=== PATIENT | male | born 1950 | race Caucasian/White ===

== ENCOUNTER 2020-04-22 11:53 | Emergency (ER) | payer MEDICARE, OTHER ==
[~2020-04-22] VITALS: Ht 167.6 cm; Wt 64.9 kg
--- NOTE | 2020-04-22 12:22 | Emergency Room Report ---
History of Present Illness General Chief Complaint: Cough Source: Patient Present Illness HPI Disclaimer: Please note that this report is being documented using DRAGON technology. This can lead to erroneous entry secondary to incorrect interpretation by the dictating instrument. HPI: 69-year-old male history of aortic stenosis, hypertension presents for evaluation of cough. Symptoms present since January 2020. Patient has recovered from Covid is a positive antibody IgG from 04/18. He reports persistent cough mild shortness of breath. Feels warm but no objective fevers. Denies chest pain or palpitations. Denies nausea or vomiting. He feels globally fatigued and reports "fogginess" in his head. Denies headache, changes in vision. Has been taking ibuprofen PMH: Aortic stenosis, hypertension PSH: Reviewed Allergies: Reviewed Social Hx: Reviewed Allergies: Coded Allergies: No Known Allergies (Unverified , 04/22/20) Review of Systems All Other Systems: negative except mentioned in HPI Physical Exam General: Awake and alert, no acute distress HEENT: NC/AT. EOMI. Cardiovascular: Mild tachycardia. Systolic ejection murmur best heard at the right and left sternal border. Resp: Normal work of breathing. No cough, wheezing or crackles appreciated Abdomen: Abdomen is soft, nondistended. Nontender Skin: Intact. No abrasions, laceration or rash over the exposed skin MSK: Normal tone and bulk. Moving all extremities. No obvious deformity. Neuro: Awake and alert. Mentating appropriately. Procedures Critical Care Time Critical Care Time Total critical care time: Approximately 45 minutes Due to a high probability of clinically significant, life threatening deterioration, the patient required the highest level of preparedness to intervene emergently and I personally spent this critical care time directly and personally managing the patient. This critical care time included obtaining a history, examining the patient, pulse oximetry, ordering and reviewing studies, ordering treatments, evaluating response to treatment and updating management plan as needed, frequent reassessment and discussion with other providers as well as arranging for ultimate disposition. This critical to care time was performed to assess and manage the high probability of life-threatening deterioration that could result in multiorgan failure. This critical care time is separate from the separately billable procedures and treating other patients. Medical Decision Making Diagnostic Impression: Primary Impression: ACS (acute coronary syndrome) ER Course 69-year-old male presenting with fatigue, cough. COVID-19 IgG positive on 04/18 according to accompanying paperwork. Differential includes not limited to viral syndrome, post Covid syndrome, pneumonia, pneumothorax, bronchitis, arrhythmia, ACS, electrolyte abnormality, renal insufficiency among others. EKG on arrival concerning for somewhat elevated appearance of inferior lateral leads. Patient is denying chest pain. Troponin is elevated 0.5. Aspirin given and heparin bolus. Chest x-ray unremarkable. Accepted to [facility] for cardiology evaluation and intervention as needed. Stable for transfer. Laboratory Tests Test 04/22/20 12:25 White Blood Count 11.9 K/UL (4.8-10.8) H Red Blood Count 4.78 M/UL (4.70-6.10) Hemoglobin 13.7 G/DL (14.2-18.0) L Hematocrit 42.7 % (42.0-52.0) Mean Corpuscular Volume 89 FL (80-99) Mean Corpuscular Hemoglobin 28.8 PG (27.0-31.0) Mean Corpuscular Hemoglobin Concent 32.2 G/DL (32.0-36.0) Red Cell Distribution Width 12.4 % (11.6-14.8) Platelet Count 216 K/UL (150-450) Mean Platelet Volume 6.6 FL (6.5-10.1) Neutrophils (%) (Auto) 70.8 % (45.0-75.0) Lymphocytes (%) (Auto) 12.4 % (20.0-45.0) L Monocytes (%) (Auto) 15.5 % (1.0-10.0) H Eosinophils (%) (Auto) 0.7 % (0.0-3.0) Basophils (%) (Auto) 0.7 % (0.0-2.0) Sodium Level 143 MMOL/L (136-145) Potassium Level 4.2 MMOL/L (3.5-5.1) Chloride Level 107 MMOL/L (98-107) Carbon Dioxide Level 28 MMOL/L (21-32) Anion Gap 8 mmol/L (5-15) Blood Urea Nitrogen 12 mg/dL (7-18) Creatinine 0.9 MG/DL (0.55-1.30) Estimated Glomerular Filtration Rate > 60 mL/min (>60) Glucose Level 113 MG/DL (74-106) H Calcium Level 8.6 MG/DL (8.5-10.1) Total Bilirubin 0.6 MG/DL (0.2-1.0) Aspartate Amino Transferase (AST) 25 U/L (15-37) Alanine Aminotransferase (ALT) 32 U/L (12-78) Alkaline Phosphatase 76 U/L (46-116) Troponin I 0.531 ng/mL (0.000-0.056) Pro-B-Type Natriuretic Peptide 420 pg/mL (0-125) H Total Protein 7.0 G/DL (6.4-8.2) Albumin 3.5 G/DL (3.4-5.0) Globulin 3.5 g/dL Albumin/Globulin Ratio 1.0 (1.0-2.7) EKG Diagnostic Results Troponin ordered: Yes When was troponin ordered?: Apr 22, 2020 EKG Time: 12:46 Rate: normal Other Impression Sinus rhythm, normal axis bolus. ST segment elevation lead II, questionable V5 and V6. No obvious reciprocal depressions. Nonspecific T wave changes ASA given to the pt in ED: Yes Rhythm Strip Diag. Results Rhythm Strip Time: 12:46 EP Interpretation: yes Rate: 80s Rhythm: NSR, no PVC's, no ectopy Chest X-Ray Diagnostic Results Chest X-Ray Diagnostic Results : Chest X-Ray Ordered: Yes # of Views/Limited/Complete: 1 View Indication: Chest Pain EP Interpretation: Yes Interpretation: no consolidation, no effusion, no pneumothorax, no acute cardiopulmonary disease Impression: No acute disease Electronically Signed by: Electronically signed by Dr. Lucho Swenson MD Disposition: SHORT-TERM HOSP Condition: Stable Lucho Swenson MD Apr 22, 2020 12:22
[2020-04-22 12:49] LABS: ANION GAP 8 mmol/L (5-15); BLOOD UREA NITROGEN 12 mg/dL (7-18); CALCIUM 8.6 MG/DL (8.5-10.1); CARBON DIOXIDE 28 MMOL/L (21-32); CHLORIDE 107 MMOL/L (98-107); CREATININE 0.9 MG/DL (0.55-1.30); POTASSIUM 4.2 MMOL/L (3.5-5.1); SODIUM 143 MMOL/L (136-145)
[2020-04-22 12:51] LABS: BASOPHILS % (AUTO) 0.7 % (0.0-2.0); EOSINOPHILS % (AUTO) 0.7 % (0.0-3.0); HEMATOCRIT 42.7 % (42.0-52.0); HEMOGLOBIN 13.7 G/DL (14.2-18.0); LYMPHOCYTES % (AUTO) 12.4 % (20.0-45.0); MEAN CORPUSCULAR VOLUME 89 FL (80-99); MONOCYTES % (AUTO) 15.5 % (1.0-10.0); NEUTROPHILS % (AUTO) 70.8 % (45.0-75.0); PLATELET COUNT 216 K/UL (150-450); RED BLOOD COUNT 4.78 M/UL (4.70-6.10); RED CELL DISTRIBUTION WIDTH 12.4 % (11.6-14.8); WHITE BLOOD COUNT 11.9 K/UL (4.8-10.8)
--- NOTE | 2020-04-22 13:00 | NUR ---
ekg faxed to [facility] er denies any chest pain or shortness of breath
[2020-04-22 13:02] LABS: ALANINE AMINOTRANSFERASE 32 U/L (12-78); ALBUMIN 3.5 G/DL (3.4-5.0); ALKALINE PHOSPHATASE 76 U/L (46-116); ASPARTATE AMINO TRANSFERASE 25 U/L (15-37); BILIRUBIN,TOTAL 0.6 MG/DL (0.2-1.0)
--- NOTE | 2020-04-22 13:05 | NUR ---
patient has been accepted at [facility] by dr hobson consent signed for transfer
--- NOTE | 2020-04-22 13:10 | NUR ---
911 has been called to transfer patient to [facility]
[2020-04-22] MEDS ORDERED: Heparin 5000 units/ml inj ONE (13:28)
[2020-04-22] MEDS ORDERED: Heparin 1000 units/ml 1ml Vial INJ ONE (13:30)
--- NOTE | 2020-04-22 13:42 | NUR ---
Patient picked up by EMS for transfer to [facility]. In stable condition.
--- NOTE | 2020-04-22 13:42 | NUR ---
patient left the er with rescue 61 all the copies of labs and x-ray send with patient
--- NOTE | 2020-04-22 13:42 | NUR ---
Report given to ER Nurse
[2020-04-22 13:44] VITALS: BP 140/80
--- NOTE | 2020-04-22 14:11 | Diagnostic Imaging Report ---
FILM CXR 1 VIEW INDICATION: Cough COMPARISON: None FINDINGS: Single frontal view demonstrates a normal cardiomediastinal silhouette. The lungs are clear. No pleural effusions. The visualized osseous structures are within normal limits. IMPRESSION: No acute cardiopulmonary disease.
== END 2020-04-22 13:44 | disposition short-term general hospital (02) ==
LOC: EMR 12:34
DX: I24.9 Acute ischemic heart disease, unspecified (principal); I10 Essential (primary) hypertension; R00.0 Tachycardia, unspecified
CPT/HCPCS: 36415; 71045; 80053; 83880; 84484; 85025; 93005; 99291; J1644

== ENCOUNTER 2020-05-07 12:14 | Inpatient (IN) | payer MEDICARE, MEDICAID ==
[~2020-05-07] VITALS: Ht 167.6 cm; Wt 79.8 kg
[2020-05-07] VITALS (7 sets, daily range): BP systolic 127–139; BP diastolic 62–95
--- NOTE | 2020-05-07 13:24 | Emergency Room Report ---
History of Present Illness General Chief Complaint: Fever Present Illness HPI 69-year-old male here with fever. The patient was admitted approximately 2 weeks ago with a concerning EKG and elevated troponin and was transferred to [facility] for possible ACS. Patient says that while he was there he had an echo cardiogram done and repeat blood work and was discharged several days later. Patient says that when he was discharged he was feeling normal but then began to have worsening chest pain over the following few days. Review of the patient's discharge paperwork show that he was diagnosed with pericarditis and was given prescription for colchicine. Patient says that he has been taking this medication but despite this he is now having worsening fevers and now some shortness of breath and pain in his left shoulder. At this time denies headache, vision changes, chills, chest pain, palpitation, shortness of breath, back pain, abdominal pain, nausea, vomiting, diarrhea, dysuria. Allergies: Coded Allergies: No Known Allergies (Unverified , 05/07/20) COVID-19 Screening Contact w/high risk pt: Yes Experienced COVID-19 symptoms?: Yes COVID-19 Testing performed POWDER HAND: Yes COVID-19 Screening: Positive COVID-19 COVID-19 Testing Source: @ [facility] Review of Systems All Other Systems: negative except mentioned in HPI Physical Exam Vital Signs Date Time Temp Pulse Resp B/P (MAP) Pulse Ox O2 Delivery O2 Flow Rate FiO2 05/07/20 13:06 101.1 85 15 139/95 (110) 97 Room Air Sp02 EP Interpretation: reviewed, normal General Appearance: no apparent distress, alert, non-toxic Head: normocephalic, atraumatic Eyes: bilateral eye normal inspection, bilateral eye PERRL ENT: hearing grossly normal, normal pharynx, no angioedema, normal voice Neck: full range of motion, supple/symm/no masses Respiratory: chest non-tender, lungs clear, normal breath sounds, speaking full sentences Cardiovascular #1: regular rate, rhythm, no edema Cardiovascular #2: 2+ carotid (R), 2+ carotid (L), 2+ radial (R), 2+ radial (L), 2+ dorsalis pedis (R), 2+ dorsalis pedis (L) Gastrointestinal: normal bowel sounds, non tender, soft, non-distended, no guarding, no rebound Rectal: deferred Genitourinary: normal inspection, no CVA tenderness Musculoskeletal: back normal, normal range of motion, gait/station normal, non- tender Neurologic: alert, motor strength/tone normal, oriented x3, sensory intact, responsive, speech normal Psychiatric: judgement/insight normal, memory normal, mood/affect normal, no suicidal/homicidal ideation Lymphatic: no adenopathy Medical Decision Making ER Course Signed out to Dr. Art pending workup. Last Vital Signs Date Time Temp Pulse Resp B/P (MAP) Pulse Ox O2 Delivery O2 Flow Rate FiO2 05/07/20 13:06 101.1 85 15 139/95 (110) 97 Room Air Referrals: NOT CHOSEN IPA/,REFERRING (PCP) Blair Beyer M.D. May 07, 2020 13:24
--- NOTE | 2020-05-07 13:25 | NUR ---
1300: pt in room, on continuous cardiac/O2 monitor. temp 101.2, MD aware. IV palced, blood, drawn, labs sent inc COVID, cultures, lactic per MD order. EKG performed.
[2020-05-07 13:44] LABS: BASOPHILS % (AUTO) 0.6 % (0.0-2.0); EOSINOPHILS % (AUTO) 0.5 % (0.0-3.0); HEMATOCRIT 38.6 % (42.0-52.0); HEMOGLOBIN 12.4 G/DL (14.2-18.0); LYMPHOCYTES % (AUTO) 12.1 % (20.0-45.0); MEAN CORPUSCULAR VOLUME 89 FL (80-99); MONOCYTES % (AUTO) 8.5 % (1.0-10.0); NEUTROPHILS % (AUTO) 78.3 % (45.0-75.0); PLATELET COUNT 238 K/UL (150-450); RED BLOOD COUNT 4.35 M/UL (4.70-6.10); RED CELL DISTRIBUTION WIDTH 12.8 % (11.6-14.8); WHITE BLOOD COUNT 10.6 K/UL (4.8-10.8)
[2020-05-07] MEDS ORDERED: Ketorolac 30mg Inj IV ONE (13:45)
[2020-05-07 14:02] LABS: ALANINE AMINOTRANSFERASE 33 U/L (12-78); ALBUMIN 3.5 G/DL (3.4-5.0); ALKALINE PHOSPHATASE 91 U/L (46-116); ANION GAP 7 mmol/L (5-15); ASPARTATE AMINO TRANSFERASE 21 U/L (15-37); BILIRUBIN,TOTAL 0.4 MG/DL (0.2-1.0); BLOOD UREA NITROGEN 15 mg/dL (7-18); CARBON DIOXIDE 28 MMOL/L (21-32); CHLORIDE 103 MMOL/L (98-107); CREATININE 0.9 MG/DL (0.55-1.30); POTASSIUM 4.1 MMOL/L (3.5-5.1); SODIUM 138 MMOL/L (136-145)
--- NOTE | 2020-05-07 14:12 | Diagnostic Imaging Report ---
Indication: Cough Technique: XRAY Chest 1v Comparison: 04/22/2020 Findings: Heart size and mediastinal contours are within normal limits for AP technique and stable compared to the prior exam. There is no focal airspace consolidation, pneumothorax or pleural effusion. Osseous structures demonstrate no acute abnormality. Impression: No radiographic evidence of acute cardiopulmonary disease.
[2020-05-07] MEDS ORDERED: Azithromycin 500 MG in NS 275 ML IV ONE (17:00)
[2020-05-07] MEDS ORDERED: cefTRIAXone 1 GM in NS 55 ML IVPB ONE (17:00)
--- NOTE | 2020-05-07 17:46 | NUR ---
1500:pt on continuous cardiac/O2 monitor. VSS. will continue to monitor. 1600: pt on continuous cardiac/O2 monitor. VSS. will continue to monitor. pt updated with plan of care. 1740: called report to Allen MCCLENDON.
--- NOTE | 2020-05-07 18:04 | NUR ---
med rec completed. pt had colchicine with him. placed in bag, receipt with pt belongings and taken to floor.
--- NOTE | 2020-05-07 18:40 | NUR ---
NURSE NOTES: pt admitted from the ED alert and awake. A&O X4. Pt denies any fever at this time. rates his pain level to be 2/10. pain med given in the ER prior to admission. skin is intact. no acute distress noted. Dr wallace made aware. gave telephone orders; noted orders and communicated.
[2020-05-07] MEDS ORDERED: Acetaminophen 500mg (ES) tab ORAL PRN (18:45)
--- NOTE | 2020-05-07 18:58 | NUR ---
NURSE HAND-OFF REPORT: Important Events on Shift:N/A Patient Status: STABLE Diet: NPO Pending Orders: N/A Pending Results/Labs:N/A Pending MD notification:N/A Latest Vital Signs: Temperature 98.2 , Pulse 76 , B/P 129 /62 , Respiratory Rate 19 , O2 SAT 97 , Room Air, O2 Flow Rate . Vital Sign Comment: STABLE EKG Rhythm: Sinus Rhythm Rhythm change?: MD Notified?: - MD Response: Soto Fall Score: Fall Risk: Safety Measures: Call light , Bed Alarm , Side Rails , Bed position . Fall Precautions: Report given to . Addendum: 05/07/20 at 1919 by Allen Baure RN NURSE HAND-OFF REPORT: Important Events on Shift:[] Patient Status: [] Diet: [] Pending Orders: [] Pending Results/Labs:[] Pending MD notification:[] Latest Vital Signs: Temperature 98.2 , Pulse 76 , B/P 129 /62 , Respiratory Rate 19 , O2 SAT 97 , Room Air, O2 Flow Rate . Vital Sign Comment: [] EKG Rhythm: Sinus Rhythm Rhythm change?: MD Notified?: - MD Response: Soto Fall Score: Fall Risk: Safety Measures: Call light , Bed Alarm , Side Rails , Bed position . Fall Precautions: Report given to
--- NOTE | 2020-05-07 19:30 | NUR ---
NURSE NOTES: Received pt and report from HAKAN Cortez. Observed pt resting in bed with both eyes open and talking on cellphone. Pt is A/Ox4. panel monitor is in placed; pt is NSR (74 bpm). IV site intact, asymptomatic, and patent; saline locked. Bed is in the lowest position and locked. Call light and bedside table is within reach. No signs/symptoms of acute distress noted. Will continue plan of care.
[2020-05-08] VITALS: BP 127/81
--- NOTE | 2020-05-08 01:23 | NUR ---
NURSE NOTES: Observed pt resting in bed with both eyes closed; arousable to voice. No acute distress noted. Will continue plan of care.
[2020-05-08 04:00] VITALS: BP 112/75
--- NOTE | 2020-05-08 07:13 | NUR ---
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 No fever or complaint of CP through out night. Patient Status: Stable Diet: NPO except ice chips Pending Orders: N Pending Results/Labs: AM Labs Pending MD notification: N Latest Vital Signs: Temperature 98.4 , Pulse 61 , B/P 112 /75 , Respiratory Rate 19 , O2 SAT 95 , Room Air, O2 Flow Rate . EKG Rhythm: SR w/BBB Rhythm change?: N Latest Soto Fall Score: 20 Fall Risk: Low Risk Safety Measures: Call light Within Reach, Bed Alarm , Side Rails Side Rails x2, Bed position Low and Locked. Fall Precautions: Patient Fall Education Report given to HAKAN Dickinson.
[2020-05-08 08:00] VITALS: BP 130/82
[2020-05-08] MEDS ORDERED: guaiFENesin /DM 10ml syrup ORAL PRN (09:45)
[2020-05-08 10:19] LABS: APPEARANCE,URINE CLEAR; BILIRUBIN, URINE NEGATIVE (NEGATIVE); COLOR,URINE PALE YELLOW; GLUCOSE, URINE (UA) NEGATIVE (NEGATIVE); KETONES,URINE NEGATIVE (NEGATIVE); LEUKOCYTE ESTERASE ,URINE NEGATIVE (NEGATIVE); NITRITE,URINE NEGATIVE (NEGATIVE); PH,URINE 7 (4.5-8.0); PROTEIN,URINE NEGATIVE (NEGATIVE); UROBILINOGEN,URINE NORMAL MG/DL (0.0-1.0)
--- NOTE | 2020-05-08 10:20 | Consultation ---
Consult Note Consult Note DATE OF CONSULTATION: 05/08/2020 CONSULTING PHYSICIAN: Rob Iglesias MD. ATTENDING PHYSICIAN: Dr. Reza REASON FOR CONSULTATION: Persistent cough, recent history of COVID-19 HISTORY OF PRESENT ILLNESS: This is a 69-year-old male with no significant past medical history who presented to the ER for evaluation of worsening chest pain over the few days. Patient was admitted approximately 2 weeks ago with a concerning EKG and elevated troponin and was transferred to [facility] for possible ACS. Patient underwent echocardiogram which revealed viral pericarditis likely secondary to COVID-19. Patient was discharged feeling normal but began to have worsening chest pain. Patient was discharged on colchicine. Patient denies headache, vision changes, chills, chest pain, palpitation, shortness of breath, back pain, abdominal pain, nausea, vomiting, diarrhea, or dysuria. Patient does report persistent dry cough when he takes deep inspiration. Patient denies smo malik, history of asthma, or COPD. Patient tested negative for COVID-19 via rapid test. Chest x-ray shows no acute cardiopulmonary disease. Patient was given broad-spectrum antibiotics in the ER and was admitted to the hospital for further management. PAST MEDICAL HISTORY: None MEDICATIONS: None ALLERGIES: No known allergies FAMILY HISTORY: Noncontributory PERSONAL/SOCIAL HISTORY: : Patient is from [place] and moved to [place] recently. Patient currently lives at home with his . REVIEW OF SYSTEMS: Negative except mentioned in HPI PHYSICAL EXAMINATION: VITAL SIGNS: Blood pressure 130/82, heart rate 69, respiratory rate 18, weight 80 kg, height 167 cm. General: Patient sitting up in bed, NAD, normal work of breathing on room air HEENT: Head exam reveals that the head is normocephalic, atraumatic without deformity or unusual swelling. Pupils are PERRLA. Patient is wearing a facemask. CHEST AND LUNGS: Reveals clear, normal, symmetrical breath sounds with no adventitious sounds. CARDIOVASCULAR: Reveals normal S1, S2 without murmurs, rubs, or clicks. ABDOMEN: Soft with no tenderness or organomegaly. RECTAL: Deferred. MUSCULOSKELETAL: There is no tenderness to palpation. Range of motion is normal. NEUROLOGICAL: Alert and oriented x3 , nonfocal LABORATORY DATA: Laboratory testing shows hemoglobin 12.4, hematocrit 38.6. Chemistries show glucose 111, CRP 8.3, BNP 402 IMPRESSION AND RECOMMENDATION This is a 69-year-old male with recent history of viral pericarditis who presents with chest pain, fever and cough. Patient is normoxemic on room air, and currently afebrile. COVID-19 negative. Assessment/Plan 1. Persistent cough - Sputum culture if needed - Robitussin prn 2. DVT prophylaxis -Ambulate 3. Fever on admission - f/u BCx, and UCx pending 4. Heart murmur - Pt reports having 2D Echo 2 weeks ago at [facility] Geoff Benitez. We will get reports from them - Pt denies any history of heart surgery The care for this patient was discussed with my supervising physician. Time spent for this case was approximately 31 minutes. Leonel Cole May 08, 2020 10:20
[2020-05-08 10:31] LABS: BASOPHILS % (AUTO) 0.5 % (0.0-2.0); EOSINOPHILS % (AUTO) 0.7 % (0.0-3.0); HEMATOCRIT 39.1 % (42.0-52.0); HEMOGLOBIN 12.7 G/DL (14.2-18.0); LYMPHOCYTES % (AUTO) 16.2 % (20.0-45.0); MEAN CORPUSCULAR VOLUME 88 FL (80-99); MONOCYTES % (AUTO) 11.6 % (1.0-10.0); NEUTROPHILS % (AUTO) 70.9 % (45.0-75.0); PLATELET COUNT 253 K/UL (150-450); RED BLOOD COUNT 4.44 M/UL (4.70-6.10); RED CELL DISTRIBUTION WIDTH 12.5 % (11.6-14.8); WHITE BLOOD COUNT 10.5 K/UL (4.8-10.8)
[2020-05-08 11:08] LABS: ALANINE AMINOTRANSFERASE 31 U/L (12-78); ALBUMIN 3.4 G/DL (3.4-5.0); ALBUMIN/GLOBULIN RATIO 0.9 (1.0-2.7); ALKALINE PHOSPHATASE 72 U/L (46-116); ANION GAP 8 mmol/L (5-15); ASPARTATE AMINO TRANSFERASE 25 U/L (15-37); BILIRUBIN,TOTAL 0.6 MG/DL (0.2-1.0); BLOOD UREA NITROGEN 15 mg/dL (7-18); CALCIUM 9.4 MG/DL (8.5-10.1); CARBON DIOXIDE 28 MMOL/L (21-32); CHLORIDE 103 MMOL/L (98-107); CREATININE 0.9 MG/DL (0.55-1.30); POTASSIUM 4.5 MMOL/L (3.5-5.1); SODIUM 139 MMOL/L (136-145)
--- NOTE | 2020-05-08 11:30 | NUR ---
call placed to md regarding diet orders awaiting call back
--- NOTE | 2020-05-08 11:33 | Cardiac Electrophysiology PN ---
Subjective Subjective [id number] Objective Last 24 Hour Vital Signs Date Time Temp Pulse Resp B/P (MAP) Pulse Ox O2 Delivery O2 Flow Rate FiO2 05/08/20 10:35 97.9 69 18 130/82 95 Room Air 05/08/20 09:00 Room Air 05/08/20 08:00 75 05/08/20 08:00 97.9 69 18 130/82 (98) 95 05/08/20 04:00 98.4 69 19 112/75 (87) 95 05/08/20 04:00 61 05/08/20 00:00 98.2 72 20 127/81 (96) 93 05/08/20 00:00 75 05/07/20 20:47 Room Air 05/07/20 20:00 98.5 77 20 127/80 (96) 95 05/07/20 20:00 74 05/07/20 18:35 98.2 76 19 129/62 (84) 97 05/07/20 17:34 78 18 130/62 97 Room Air 05/07/20 16:24 98.1 86 20 139/74 100 Room Air 05/07/20 16:02 86 20 129/78 98 Room Air 05/07/20 13:37 88 20 130/88 97 Room Air 05/07/20 13:23 85 15 Room Air 05/07/20 13:23 101.2 85 15 139/95 97 Room Air 05/07/20 13:06 101.1 85 15 139/95 (110) 97 Room Air Laboratory Tests Test 05/07/20 13:12 05/08/20 09:30 05/08/20 10:00 White Blood Count 10.6 K/UL (4.8-10.8) 10.5 K/UL (4.8-10.8) Red Blood Count 4.35 M/UL (4.70-6.10) L 4.44 M/UL (4.70-6.10) L Hemoglobin 12.4 G/DL (14.2-18.0) L 12.7 G/DL (14.2-18.0) L Hematocrit 38.6 % (42.0-52.0) L 39.1 % (42.0-52.0) L Mean Corpuscular Volume 89 FL (80-99) 88 FL (80-99) Mean Corpuscular Hemoglobin 28.4 PG (27.0-31.0) 28.5 PG (27.0-31.0) Mean Corpuscular Hemoglobin Concent 32.0 G/DL (32.0-36.0) 32.3 G/DL (32.0-36.0) Red Cell Distribution Width 12.8 % (11.6-14.8) 12.5 % (11.6-14.8) Platelet Count 238 K/UL (150-450) 253 K/UL (150-450) Mean Platelet Volume 6.0 FL (6.5-10.1) L 6.2 FL (6.5-10.1) L Neutrophils (%) (Auto) 78.3 % (45.0-75.0) H 70.9 % (45.0-75.0) Lymphocytes (%) (Auto) 12.1 % (20.0-45.0) L 16.2 % (20.0-45.0) L Monocytes (%) (Auto) 8.5 % (1.0-10.0) 11.6 % (1.0-10.0) H Eosinophils (%) (Auto) 0.5 % (0.0-3.0) 0.7 % (0.0-3.0) Basophils (%) (Auto) 0.6 % (0.0-2.0) 0.5 % (0.0-2.0) Erythrocyte Sedimentation Rate 32 MM/HR (0-20) H Sodium Level 138 MMOL/L (136-145) 139 MMOL/L (136-145) Potassium Level 4.1 MMOL/L (3.5-5.1) 4.5 MMOL/L (3.5-5.1) Chloride Level 103 MMOL/L (98-107) 103 MMOL/L (98-107) Carbon Dioxide Level 28 MMOL/L (21-32) 28 MMOL/L (21-32) Anion Gap 7 mmol/L (5-15) 8 mmol/L (5-15) Blood Urea Nitrogen 15 mg/dL (7-18) 15 mg/dL (7-18) Creatinine 0.9 MG/DL (0.55-1.30) 0.9 MG/DL (0.55-1.30) Estimat Glomerular Filtration Rate > 60 mL/min (>60) > 60 mL/min (>60) Glucose Level 111 MG/DL (74-106) H 96 MG/DL (74-106) Lactic Acid Level 0.60 mmol/L (0.4-2.0) Calcium Level 9.0 MG/DL (8.5-10.1) 9.4 MG/DL (8.5-10.1) Total Bilirubin 0.4 MG/DL (0.2-1.0) 0.6 MG/DL (0.2-1.0) Aspartate Amino Transf (AST/SGOT) 21 U/L (15-37) 25 U/L (15-37) Alanine Aminotransferase (ALT/SGPT) 33 U/L (12-78) 31 U/L (12-78) Alkaline Phosphatase 91 U/L (46-116) 72 U/L (46-116) Troponin I 0.043 ng/mL (0.000-0.056) C-Reactive Protein, Quantitative 8.3 mg/dL (0.00-0.90) H Pro-B-Type Natriuretic Peptide 402 pg/mL (0-125) H Total Protein 6.9 G/DL (6.4-8.2) 7.0 G/DL (6.4-8.2) Albumin 3.5 G/DL (3.4-5.0) 3.4 G/DL (3.4-5.0) Globulin 3.4 g/dL 3.6 g/dL Albumin/Globulin Ratio 1.0 (1.0-2.7) 0.9 (1.0-2.7) L Urine Color Pale yellow Urine Appearance Clear Urine pH 7 (4.5-8.0) Urine Specific [place] 1.005 (1.005-1.035) Urine Protein Negative (NEGATIVE) Urine Glucose (UA) Negative (NEGATIVE) Urine Ketones Negative (NEGATIVE) Urine Blood Negative (NEGATIVE) Urine Nitrite Negative (NEGATIVE) Urine Bilirubin Negative (NEGATIVE) Urine Urobilinogen Normal MG/DL (0.0-1.0) Urine Leukocyte Esterase Negative (NEGATIVE) Urine RBC 0 /HPF (0 - 0) Urine WBC 0-2 /HPF (0 - 0) Urine Squamous Epithelial Cells Occasional /LPF Urine Bacteria Occasional /HPF (NONE) Microbiology Date/Time Source Procedure Growth Status 05/07/20 13:12 Nasopharynx SARS-CoV-2 Antigen (Rapid)(ERIC) - Final Complete Jasen Kee MD May 08, 2020 11:33
[2020-05-08 12:00] VITALS: BP 119/79
--- NOTE | 2020-05-08 13:59 | Consultation ---
DATE OF CONSULTATION: 05/08/2020 INFECTIOUS DISEASES CONSULTATION CONSULTING PHYSICIAN: Kaden Landers MD. PRIMARY ATTENDING PHYSICIAN: Christina Reza MD. REASON FOR CONSULTATION: Fever and pericarditis. HISTORY OF PRESENT ILLNESS: This is a 69-year-old Turkish male admitted last night from home complaining of fever. The patient had a recent visit to [facility] in the ER on April 22, 2020. The chest pain and abnormal EKG with ST elevation with impression of acute coronary syndrome, transferred to [facility]. There was found the patient had pericarditis and he was discharged from there with colchicine and ibuprofen. PAST MEDICAL HISTORY: Significant for hypertension, aortic stenosis, COVID-19 positive two weeks ago. ALLERGIES: No known drug allergies. MEDICATIONS: He is getting Tylenol, get a dose of ketorolac, ceftriaxone, azithromycin. SOCIAL HISTORY: . Denies alcohol, drug abuse, or smoking. REVIEW OF SYSTEMS: Fever. Has some dry coughing. No chest pain at the time of examination. No nausea. No vomiting. No dysuria.. No diarrhea. PHYSICAL EXAMINATION: VITAL SIGNS: Temperature 97.9, pulse 69, blood pressure is 130/82. GENERAL APPEARANCE: Well-developed, no acute distress. HEAD AND NECK: [place] conjunctivae. HEART: Normal rate. LUNGS: Clear. ABDOMEN: Soft, nontender. EXTREMITIES: No edema. LABORATORY AND DIAGNOSTIC DATA: WBC 10.6, hemoglobin 12.4, hematocrit 38.6, platelets is 238. ESR is elevated at 32. CRP also is elevated 8.3. Sodium 138, potassium 4.1, chloride 103, bicarb 28, BUN 15, creatinine 0.9. LFTs normal. BNP is slightly elevated 402. Chest x-ray was negative. IMPRESSION: Fever, recent history of pericarditis, recent history of COVID-19, hypertension, aortic stenosis. RECOMMENDATION: Observe off antibiotic. We will follow up blood culture. We will discuss with [employer] about further workup. At the end of my exam, I thank Dr. Reza for involving me in the care of this patient. Kaden Landers M.D. DR: JOEL JOB#: [id number] CC: AILEEN
[2020-05-08 16:00] VITALS: BP 129/79
[2020-05-08] MEDS ORDERED: COLCHICINE0.6 M1 PO (17:51)
--- NOTE | 2020-05-08 18:29 | Consultation ---
DATE OF CONSULTATION: 05/08/2020 CARDIOLOGY CONSULTATION CONSULTING PHYSICIAN: Jasen Kee MD REFERRING PHYSICIAN: Christina Reza MD REASON FOR CONSULTATION: Rule out pericarditis. HISTORY OF PRESENT ILLNESS: The patient is a 69-year-old gentleman with no significant past medical history except for history of recent COVID-19, who presented to the emergency room for chest pain in the last few days as well as fever. The patient was admitted about 2 weeks with a concern of EKGs and elevated troponin. He was transferred to [place] for possible acute coronary syndrome. The patient underwent echocardiogram that revealed pericarditis likely secondary to COVID-19 and was discharged. He felt that the pain was getting worse. The patient was discharged on colchicine. At the time of my evaluation, the patient is feeling better and is COVID test was negative with rapid test and chest x-ray showed no acute cardiopulmonary disease. The patient was started on IV antibiotic in the emergency room and was admitted for further evaluation. REVIEW OF SYSTEMS: Negative other than what is mentioned in the history of present illness. PAST MEDICAL HISTORY: As mentioned above. MEDICATIONS AT HOME: Colchicine. ALLERGIES: Has no known drug allergies. SOCIAL HISTORY: He is from [place] and moved to [place] recently. Lives at home with his . Does not smoke or drink alcohol. PHYSICAL EXAMINATION: VITAL SIGNS: Blood pressure is 130/82, pulse 69, respirations 18, temperature 98. HEAD AND NECK: Showed no JVD. LUNGS: Clear. CARDIOVASCULAR: Shows regular S1 and S2 with no gallop or murmur. ABDOMEN: Soft. EXTREMITIES: No pitting edema. LABORATORY DATA: Labs show white count 10.5, hemoglobin 12.7, hematocrit 39, and platelet count 253,000. Sodium 139, potassium 4.5, BUN of 15, creatinine 0.9. Troponin is negative. BNP is 402. ASSESSMENT AND PLAN: 1. Atypical chest pain. The patient with fever a recent COVID and history of pericarditis. We will repeat EKG and get an echocardiogram for further evaluation. 2. Status post recent COVID with fever. The patient is on Robitussin. Further evaluation by Dr. Iglesias. Thank you very much for allowing me to participate in the care of this patient. Please do not hesitate to contact me for any questions regarding my evaluation. Sincerely, Jasen Kee M.D. DR: STEVAN JOB#: [id number] CC:
--- NOTE | 2020-05-08 18:53 | NUR ---
+ bc results called to md orders rec
[2020-05-08 20:00] VITALS: BP 126/82
--- NOTE | 2020-05-08 20:11 | NUR ---
NURSE NOTES: Dr. Reza ordered to change pt's diet to Cardiac diet. Will note and carry out.
--- NOTE | 2020-05-08 20:38 | NUR ---
NURSE NOTES: Received pt and report from HAKAN Dickinson. Observed pt resting in bed with both eyes open and on his cellphone. Pt is A/Ox4. air sampling and monitoring is in placed; pt is NSR (72 bpm). IV site intact, asymptomatic, and patent; saline locked. Pt is on room air; sating at 95%. Bed is in the lowest position and locked. Call light and bedside table is within reach. No signs/symptoms of acute distress noted. Will continue plan of care.
[2020-05-08] MEDS ORDERED: Vancomycin 1.5gm/300ml Premix IVPB SCH (21:00)
--- NOTE | 2020-05-08 21:52 | Cardiology Report ---
APPROVED REPORT EXAM: Two-dimensional and M-mode echocardiogram with Doppler and color Doppler. INDICATION Chest Pain M-Mode DIMENSIONS IVSd1.5 (0.7-1.1cm)Left Atrium (MM)5.2 (1.6-4.0cm) LVDd5.1 (3.5-5.6cm)Aortic Root3.6 (2.0-3.7cm) PWd1.3 (0.7-1.1cm)Aortic Cusp Exc.1.7 (1.5-2.0cm) IVSs1.9 cmEPSS0.5 (>1.0cm) LVDs4.2 (2.5-4.0cm) PWs1.9 cm <Conclusion> Normal left ventricular systolic function and wall motion. Left ventricular ejection fraction estimated to be 60-65 %. Mild left ventricular hypertrophy. Anterior Echo-free space, may be due to pericardial fat or effusion. Right ventricular chamber size is within upper normal limits. 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 Thickened mitral valve leaflets with normal excursion. Mitral annulus and aortic root calcification. Normal pulmonic valve structure. Normal tricuspid valve structure. IVC at normal size and collapsing with respiration. A color flow and spectral Doppler study was performed and revealed: Mild aortic regurgitation. Mild mitral regurgitation. Mitral diastolic velocities suggest reduced left ventricular relaxation c/w mild diastolic dysfunction (Grade I). Trace tricuspid regurgitation. Tricuspid systolic velocities suggests peak right ventricular systolic pressure of 17 mmHg. Mild Pulmonic regurgitation present.
--- NOTE | 2020-05-08 22:44 | History and Physical Report ---
DATE OF ADMISSION: 05/07/2020 HISTORY OF PRESENT ILLNESS: Patient is admitted for fever and chest pain. Patient has been complaining of mild cough, fever intermittently for the past 10 days as well as headache. Patient has recently hospitalized for pericarditis and was COVID positive 2 weeks ago. At this time, COVID came negative. Patient has history of recent pericarditis. Patient is admitted rule out pneumonia. He has been coughing. He is started on IV antibiotics. Denies orthopnea. Denies chest pain. Denies nausea, vomiting, or diarrhea. Denies sore throat. PAST MEDICAL HISTORY: History of gout, history of COVID positive in the past, history of pericarditis. PAST SURGICAL HISTORY: Appendectomy and right hand surgery. ALLERGIES: No known allergies. MEDICATIONS: None. FAMILY HISTORY: Noncontributory. SOCIAL HISTORY: Denies history of smoking. Denies history of alcohol abuse. Denies history of drug abuse. REVIEW OF SYSTEMS: HEENT: Denies headaches. RESPIRATORY: Denies shortness of breath. Does have cough for the past 10 days. CARDIOVASCULAR: Denies chest pain. Denies orthopnea. GASTROINTESTINAL: Denies nausea, vomiting, or diarrhea. EXTREMITIES: Denies pain. CENTRAL NERVOUS SYSTEM: Denies change in speech pattern. Feels weak. PHYSICAL EXAMINATION: VITAL SIGNS: Temperature is 97.9, pulse is 69, blood pressure 130/80. HEENT: PERRLA. NECK: Supple. No lymphadenopathy. CHEST: Clear to auscultation. CARDIOVASCULAR: Regular rate and rhythm. No murmurs or extra sounds. GASTROINTESTINAL: Soft, nontender, nondistended. No organomegaly. EXTREMITIES: No edema. Moves all four extremities. NEUROLOGIC: Sensory intact to light touch. Reflexes on both sides. LABORATORY DATA: WBC of 10.6, hemoglobin 12.4, platelets of 238. Sodium 138, potassium 4.1, BUN of 15, creatinine 0.9. Troponin 0.043. ASSESSMENT AND PLAN: Rule out pneumonia, fever, cough, COVID negative, recent pericarditis. I have consulted Dr. Kee, Dr. Rob Iglesias, and Dr. Kaden Landers to help with the management of pneumonia and make sure that the pericarditis is not back. 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 Antibiotics per Dr. Kaden Landers. Christina Reza M.D. DR: LILI JOB#: [id number] CC:
[2020-05-09] VITALS: BP 105/73
--- NOTE | 2020-05-09 02:00 | NUR ---
NURSE NOTES: Observed pt asleep in bed. No complaint of CP or acute distress noted.
[2020-05-09 04:00] VITALS: BP 111/74
--- NOTE | 2020-05-09 07:27 | NUR ---
NURSE HAND-OFF REPORT: Important Events on Shift: Pt had low grade fever last night (99.9 F). Pt's BC is positive for Gram + cocci in chains. Temp decreased after Vancomycin IVPB infusion. Dr. Kee made rounds and saw pt. No new orders. Patient Status: Stable Diet: Cardiac diet Pending Orders: N Pending Results/Labs: AM Labs Pending MD notification: N Latest Vital Signs: Temperature 98.0 , Pulse 68 , B/P 111 /74 , Respiratory Rate 20 , O2 SAT 95 , Room Air, O2 Flow Rate . EKG Rhythm: SR w/BBB Rhythm change?: N Latest Soto Fall Score: 20 Fall Risk: Low Risk Safety Measures: Call light Within Reach, Bed Alarm Zone 1, Side Rails Side Rails x2, Bed position Low and Locked. Fall Precautions: Patient Fall Education Report given to HAKAN Dickinson.
[2020-05-09 08:00] VITALS: BP 115/78
--- NOTE | 2020-05-09 08:12 | Cardiac Electrophysiology PN ---
Assessment/Plan Assessment/Plan 1. Atypical chest pain. The patient with fever a recent COVID and history of pericarditis. Ruled out for [place] and Echocardiogram showed Nl EF with no pericardial effusion 2. Status post recent COVID with fever. Now with positive blood Cx. On iv Vanco per ID DW RN Subjective Subjective No CP in SR. Blood Cx is now positive for G+ cocci in chains and is on Vancomycin Objective Last 24 Hour Vital Signs Date Time Temp Pulse Resp B/P (MAP) Pulse Ox O2 Delivery O2 Flow Rate FiO2 05/09/20 04:00 98.0 75 20 111/74 (86) 95 05/09/20 04:00 68 05/09/20 00:00 68 05/09/20 00:00 99.1 70 20 105/73 (84) 95 05/08/20 21:00 Room Air 05/08/20 20:00 71 05/08/20 20:00 99.9 71 19 126/82 (97) 95 05/08/20 16:00 71 05/08/20 16:00 99.3 72 19 129/79 (96) 94 05/08/20 12:00 66 05/08/20 12:00 98.4 76 18 119/79 (92) 95 05/08/20 10:35 97.9 69 18 130/82 95 Room Air 05/08/20 09:00 Room Air Intake and Output 05/08/20 05/09/20 19:00 07:00 Output Total 250 ml Balance -250 ml Output Urine Total 250 ml # Voids 3 2 Laboratory Tests Test 05/08/20 09:30 05/08/20 10:00 05/09/20 06:04 White Blood Count 10.5 K/UL (4.8-10.8) Red Blood Count 4.44 M/UL (4.70-6.10) L Hemoglobin 12.7 G/DL (14.2-18.0) L Hematocrit 39.1 % (42.0-52.0) L Mean Corpuscular Volume 88 FL (80-99) Mean Corpuscular Hemoglobin 28.5 PG (27.0-31.0) Mean Corpuscular Hemoglobin Concent 32.3 G/DL (32.0-36.0) Red Cell Distribution Width 12.5 % (11.6-14.8) Platelet Count 253 K/UL (150-450) Mean Platelet Volume 6.2 FL (6.5-10.1) L Neutrophils (%) (Auto) 70.9 % (45.0-75.0) Lymphocytes (%) (Auto) 16.2 % (20.0-45.0) L Monocytes (%) (Auto) 11.6 % (1.0-10.0) H Eosinophils (%) (Auto) 0.7 % (0.0-3.0) Basophils (%) (Auto) 0.5 % (0.0-2.0) Sodium Level 139 MMOL/L (136-145) Potassium Level 4.5 MMOL/L (3.5-5.1) Chloride Level 103 MMOL/L (98-107) Carbon Dioxide Level 28 MMOL/L (21-32) Anion Gap 8 mmol/L (5-15) Blood Urea Nitrogen 15 mg/dL (7-18) Creatinine 0.9 MG/DL (0.55-1.30) Estimat Glomerular Filtration Rate > 60 mL/min (>60) Glucose Level 96 MG/DL (74-106) Calcium Level 9.4 MG/DL (8.5-10.1) Total Bilirubin 0.6 MG/DL (0.2-1.0) Aspartate Amino Transf (AST/SGOT) 25 U/L (15-37) Alanine Aminotransferase (ALT/SGPT) 31 U/L (12-78) Alkaline Phosphatase 72 U/L (46-116) Total Protein 7.0 G/DL (6.4-8.2) Albumin 3.4 G/DL (3.4-5.0) Globulin 3.6 g/dL Albumin/Globulin Ratio 0.9 (1.0-2.7) L Urine Color Pale yellow Urine Appearance Clear Urine pH 7 (4.5-8.0) Urine Specific [place] 1.005 (1.005-1.035) Urine Protein Negative (NEGATIVE) Urine Glucose (UA) Negative (NEGATIVE) Urine Ketones Negative (NEGATIVE) Urine Blood Negative (NEGATIVE) Urine Nitrite Negative (NEGATIVE) Urine Bilirubin Negative (NEGATIVE) Urine Urobilinogen Normal MG/DL (0.0-1.0) Urine Leukocyte Esterase Negative (NEGATIVE) Urine RBC 0 /HPF (0 - 0) Urine WBC 0-2 /HPF (0 - 0) Urine Squamous Epithelial Cells Occasional /LPF Urine Bacteria Occasional /HPF (NONE) Troponin I 0.021 ng/mL (0.000-0.056) Pro-B-Type Natriuretic Peptide 238 pg/mL (0-125) H Thyroid Stimulating Hormone (TSH) 0.912 uiU/mL (0.358-3.740) Free Thyroxine 1.22 NG/DL (0.76-1.46) Microbiology Date/Time Source Procedure Growth Status 05/07/20 14:02 Blood Blood Culture - Preliminary NO GROWTH AFTER 24 HOURS Resulted 05/07/20 13:12 Nasopharynx SARS-CoV-2 Antigen (Rapid)(ERIC) - Final Complete 05/07/20 13:12 Blood Blood Culture - Preliminary Resulted Objective HEAD AND NECK: No JVD. LUNGS: Clear. CARDIOVASCULAR: Regular S1 and S2 with no gallop or murmur. ABDOMEN: Soft. EXTREMITIES: No pitting edema. Jasen Kee MD May 09, 2020 08:12
[2020-05-09] MEDS: Vancomycin 750mg/D5W 275ml IVPB SCH ×4 (08:26→20:05)
--- NOTE | 2020-05-09 11:13 | Pulmonology Progress Note ---
Subjective ROS Limited/Unobtainable: No Interval Events: none major reported per nursing Constitutional: Reports: no symptoms, fever, other - Tmax=99.9 HEENT: Repors: no symptoms Respiratory: Reports: dry cough Cardiovascular: Reports: no symptoms Gastrointestinal/Abdominal: Reports: no symptoms Allergies: Coded Allergies: No Known Allergies (Unverified , 05/07/20) Objective Last 24 Hour Vital Signs Date Time Temp Pulse Resp B/P (MAP) Pulse Ox O2 Delivery O2 Flow Rate FiO2 05/09/20 09:00 Room Air 05/09/20 08:00 82 05/09/20 08:00 98.7 75 20 115/78 (90) 93 05/09/20 04:00 98.0 75 20 111/74 (86) 95 05/09/20 04:00 68 05/09/20 00:00 68 05/09/20 00:00 99.1 70 20 105/73 (84) 95 05/08/20 21:00 Room Air 05/08/20 20:00 71 05/08/20 20:00 99.9 71 19 126/82 (97) 95 05/08/20 16:00 71 05/08/20 16:00 99.3 72 19 129/79 (96) 94 05/08/20 12:00 66 05/08/20 12:00 98.4 76 18 119/79 (92) 95 Intake and Output 05/08/20 05/09/20 19:00 07:00 Output Total 250 ml Balance -250 ml Output Urine Total 250 ml # Voids 3 2 General Appearance: no acute distress HEENT: atraumatic Respiratory: lungs clear Cardiovascular: normal rate, regular rhythm, other - murmur Abdomen: soft, non tender Microbiology Date/Time Source Procedure Growth Status 05/07/20 14:02 Blood Blood Culture - Preliminary NO GROWTH AFTER 24 HOURS Resulted 05/07/20 13:12 Nasopharynx SARS-CoV-2 Antigen (Rapid)(ERIC) - Final Complete 05/07/20 13:12 Blood Blood Culture - Preliminary Resulted Laboratory Tests 05/09/20 06:04: Troponin I 0.021, Pro-B-Type Natriuretic Peptide 238H, Thyroid Stimulating Hor marv (TSH) 0.912, Free Thyroxine 1.22 Current Medications Medications (Trade) Dose Ordered Sig/Zakia Route PRN Reason Start Time Stop Time Status Last Admin Dose Admin Acetaminophen (Tylenol) 500 mg Q6H PRN ORAL Mild Pain (Pain Scale 1-3) 05/07/20 18:45 06/06/20 18:44 Guaifenesin/ Dextromethorphan (Robitussin DM Syrup) 10 ml Q4H PRN ORAL For Cough 05/08/20 09:45 08/06/20 09:44 05/09/20 08:25 Vancomycin HCl (Vanco pharmacy to dose) 1 ea DAILY PRN MISC Per rx protocol 05/08/20 19:00 06/07/20 18:59 Vancomycin HCl 750 mg/Dextrose 275 ml @ 183.333 mls/hr Q12HR IVPB 05/09/20 09:00 05/14/20 08:59 05/09/20 08:26 Assessment/Plan Assessment/Plan 1. Persistent cough - Sputum culture if needed - Robitussin prn cough 2. DVT prophylaxis -Ambulate 3. Fever on admission - f/u BCx -> Gram positive cocci -> on Vanco 4. Heart murmur - 2D Echo: mild A/P/T/M regurgitation, mild LV hypertrophy - Pt denies any history of heart surgery The care for this patient was discussed with my supervising physician. Time spent for this case was approximately 31 minutes. Leonel Cole May 09, 2020 11:13
[2020-05-09 12:00] VITALS: BP 123/85
--- NOTE | 2020-05-09 12:43 | Infectious Diseases Prog Note ---
Assessment/Plan Assessment/Plan IMPRESSION: Bacteremia with gram positives Fever, recent history of pericarditis, Recent history of COVID-19, Hypertension, Diastolic CHF RECOMMENDATION: Continue IV Vancomycin. We will follow up blood cultures Subjective ROS Limited/Unobtainable: No Constitutional: Reports: no symptoms Respiratory: Reports: dry cough Cardiovascular: Reports: no symptoms Gastrointestinal/Abdominal: Reports: no symptoms Genitourinary: Reports: no symptoms Allergies: Coded Allergies: No Known Allergies (Unverified , 05/07/20) Objective Last 24 Hour Vital Signs Date Time Temp Pulse Resp B/P (MAP) Pulse Ox O2 Delivery O2 Flow Rate FiO2 05/09/20 09:00 Room Air 05/09/20 08:00 82 05/09/20 08:00 98.7 75 20 115/78 (90) 93 05/09/20 04:00 98.0 75 20 111/74 (86) 95 05/09/20 04:00 68 05/09/20 00:00 68 05/09/20 00:00 99.1 70 20 105/73 (84) 95 05/08/20 21:00 Room Air 05/08/20 20:00 71 05/08/20 20:00 99.9 71 19 126/82 (97) 95 05/08/20 16:00 71 05/08/20 16:00 99.3 72 19 129/79 (96) 94 Height (Feet): 5 Height (Inches): 6.00 Weight (Pounds): 176 HEENT: mucous membranes moist Respiratory/Chest: lungs clear Cardiovascular: normal rate Abdomen: soft, non tender Extremities: no edema Neurologic/Psychiatric: alert, oriented x 3, responsive Microbiology Date/Time Source Procedure Growth Status 05/07/20 14:02 Blood Blood Culture - Preliminary Resulted 05/07/20 13:12 Nasopharynx SARS-CoV-2 Antigen (Rapid)(ERIC) - Final Complete 05/07/20 13:12 Blood Blood Culture - Preliminary Resulted Laboratory Tests Test 05/09/20 06:04 Troponin I 0.021 ng/mL (0.000-0.056) Pro-B-Type Natriuretic Peptide 238 pg/mL (0-125) H Thyroid Stimulating Hormone (TSH) 0.912 uiU/mL (0.358-3.740) Free Thyroxine 1.22 NG/DL (0.76-1.46) Current Medications Medications (Trade) Dose Ordered Sig/Zakia Route PRN Reason Start Time Stop Time Status Last Admin Dose Admin Acetaminophen (Tylenol) 500 mg Q6H PRN ORAL Mild Pain (Pain Scale 1-3) 05/07/20 18:45 06/06/20 18:44 Guaifenesin/ Dextromethorphan (Robitussin DM Syrup) 10 ml Q4H PRN ORAL For Cough 05/08/20 09:45 08/06/20 09:44 05/09/20 08:25 Vancomycin HCl (Vanco pharmacy to dose) 1 ea DAILY PRN MISC Per rx protocol 05/08/20 19:00 06/07/20 18:59 Vancomycin HCl 750 mg/Dextrose 275 ml @ 183.333 mls/hr Q12HR IVPB 05/09/20 09:00 05/14/20 08:59 05/09/20 08:26 Kaden Landers MD May 09, 2020 12:43
[2020-05-09 16:00] VITALS: BP 119/74
--- NOTE | 2020-05-09 19:10 | NUR ---
NURSE NOTES: Important Events on Shift: Received report from Teena Oakes RN. Pt in bed, AAxO x 4, denies pain or distress noted at this time. Will continue to monitor closely and plan of care. Patient Status: full code Diet: cardiac Pending Orders: None Pending Results/Labs: Vanco trough Pending MD notification: none Latest Vital Signs: Temperature 98.1 , Pulse 71 , B/P 122 /81 , Respiratory Rate 18 , O2 SAT 96 , Room Air, O2 Flow Rate . Vital Sign Comment: stable throughout shift per report. EKG Rhythm: Sinus Rhythm Rhythm change?: N MD Notified?: - MD Response: Latest Soto Fall Score: 20 Fall Risk: Low Risk Safety Measures: Call light Within Reach, Bed Alarm Zone 2, Side Rails Side Rails x2, Bed position Low and Locked. Fall Precautions: Patient Fall Education
--- NOTE | 2020-05-09 19:57 | General Progress Note ---
Subjective ROS Limited/Unobtainable: Yes Allergies: Coded Allergies: No Known Allergies (Unverified , 05/07/20) Objective Last 24 Hour Vital Signs Date Time Temp Pulse Resp B/P (MAP) Pulse Ox O2 Delivery O2 Flow Rate FiO2 05/09/20 16:00 98.6 83 19 119/74 (89) 94 05/09/20 16:00 76 05/09/20 12:00 77 05/09/20 12:00 98.6 80 19 123/85 (98) 94 05/09/20 09:00 Room Air 05/09/20 08:00 82 05/09/20 08:00 98.7 75 20 115/78 (90) 93 05/09/20 04:00 98.0 75 20 111/74 (86) 95 05/09/20 04:00 68 05/09/20 00:00 68 05/09/20 00:00 99.1 70 20 105/73 (84) 95 05/08/20 21:00 Room Air 05/08/20 20:00 71 05/08/20 20:00 99.9 71 19 126/82 (97) 95 Intake and Output 05/08/20 05/09/20 19:00 07:00 Output Total 250 ml Balance -250 ml Output Urine Total 250 ml # Voids 3 2 Laboratory Tests 05/09/20 06:04: Troponin I 0.021, Pro-B-Type Natriuretic Peptide 238H, Thyroid Stimulating Hormo ne (TSH) 0.912, Free Thyroxine 1.22 Height (Feet): 5 Height (Inches): 6.00 Weight (Pounds): 176 Assessment/Plan Problem List: (1) ACS (acute coronary syndrome) ICD Codes: I24.9 - Acute ischemic heart disease, unspecified SNOMED: 140835566 Status: progressing Assessment/Plan: sepsis positive blood cx needs iv antibiotic reviewed chart and labs Christina Reza MD May 09, 2020 19:57
[2020-05-09 20:00] VITALS: BP 122/81
[2020-05-10] VITALS: BP 121/78
[2020-05-10 04:00] VITALS: BP 140/70
--- NOTE | 2020-05-10 06:59 | NUR ---
NURSE HAND-OFF REPORT: Important Events on Shift: Vanco trough scheduled @0800, prior to 0900 dose. Patient Status: full code Diet: cardiac Pending Orders: none Pending Results/Labs: vanco trough Pending MD notification: none Latest Vital Signs: Temperature 98.8 , Pulse 61 , B/P 140 /70 , Respiratory Rate 18 , O2 SAT 97 , Room Air, O2 Flow Rate . Vital Sign Comment: stable throughout shift, afebrile. EKG Rhythm: Sinus Rhythm Rhythm change?: N MD Notified?: - MD Response: Latest Soto Fall Score: 20 Fall Risk: Low Risk Safety Measures: Call light Within Reach, Bed Alarm Zone 2, Side Rails Side Rails x2, Bed position Low and Locked. Fall Precautions: Patient Fall Education Report to be given to Teena Oakes RN. Plan of care and close monitoring to be endorsed.
[2020-05-10 08:00] VITALS: BP 119/82
--- NOTE | 2020-05-10 08:57 | Pulmonology Progress Note ---
Subjective ROS Limited/Unobtainable: Yes Interval Events: none major reported per nursing Constitutional: Reports: no symptoms HEENT: Repors: no symptoms Respiratory: Reports: dry cough Cardiovascular: Reports: no symptoms Gastrointestinal/Abdominal: Reports: no symptoms Allergies: Coded Allergies: No Known Allergies (Unverified , 05/07/20) Objective Last 24 Hour Vital Signs Date Time Temp Pulse Resp B/P (MAP) Pulse Ox O2 Delivery O2 Flow Rate FiO2 05/10/20 08:00 75 05/10/20 08:00 100.4 81 18 119/82 (94) 97 05/10/20 04:00 66 05/10/20 04:00 98.8 61 18 140/70 (93) 97 05/10/20 00:00 98.1 76 16 121/78 (92) 95 05/09/20 21:00 Room Air 05/09/20 20:00 83 05/09/20 20:00 98.1 71 18 122/81 (95) 96 05/09/20 16:00 98.6 83 19 119/74 (89) 94 05/09/20 16:00 76 05/09/20 12:00 77 05/09/20 12:00 98.6 80 19 123/85 (98) 94 05/09/20 09:00 Room Air Intake and Output 05/09/20 05/10/20 19:00 07:00 Intake Total 300 ml Balance 300 ml Intake Oral 300 ml # Voids 3 General Appearance: no acute distress HEENT: atraumatic Respiratory: lungs clear Cardiovascular: normal rate, regular rhythm, other - murmur Abdomen: soft, non tender Microbiology Date/Time Source Procedure Growth Status 05/07/20 14:02 Blood Blood Culture - Preliminary Strep Anginosus/Constellatus Resulted 05/07/20 13:12 Nasopharynx SARS-CoV-2 Antigen (Rapid)(ERIC) - Final Complete 05/07/20 13:12 Blood Blood Culture - Preliminary Strep Anginosus/Constellatus Resulted Laboratory Tests 05/10/20 08:00: Vancomycin Level Trough [Pending] Current Medications Medications (Trade) Dose Ordered Sig/Zakia Route PRN Reason Start Time Stop Time Status Last Admin Dose Admin Acetaminophen (Tylenol) 500 mg Q6H PRN ORAL Mild Pain (Pain Scale 1-3) 05/07/20 18:45 06/06/20 18:44 Guaifenesin/ Dextromethorphan (Robitussin DM Syrup) 10 ml Q4H PRN ORAL For Cough 05/08/20 09:45 08/06/20 09:44 05/09/20 08:25 Vancomycin HCl (Vanco pharmacy to dose) 1 ea DAILY PRN MISC Per rx protocol 05/08/20 19:00 06/07/20 18:59 Vancomycin HCl 750 mg/Dextrose 275 ml @ 183.333 mls/hr Q12HR IVPB 05/09/20 09:00 05/14/20 08:59 05/09/20 20:05 Assessment/Plan Assessment/Plan 1. Persistent cough - Sputum culture if needed - Robitussin prn cough 2. DVT prophylaxis -Ambulate 3. Fever on admission - f/u BCx -> Gram positive cocci -> on Vanco 4. Heart murmur - 2D Echo: mild A/P/T/M regurgitation, mild LV hypertrophy - Pt denies any history of heart surgery The care for this patient was discussed with my supervising physician. Time spent for this case was approximately 31 minutes. Leonel Cole May 10, 2020 08:57
--- NOTE | 2020-05-10 10:37 | Cardiac Electrophysiology PN ---
Assessment/Plan Assessment/Plan 1. Atypical chest pain. The patient with fever a recent COVID and history of pericarditis. Ruled out for [place] and Echocardiogram showed Nl EF with no pericardial effusion 2. Status post recent COVID with fever. Now with positive blood Cx. On iv Vanco per ID DW RN Subjective Subjective No CP in SR. Blood Cx is now positive for G+ cocci in chains and is febrile on Vancomycin Objective Last 24 Hour Vital Signs Date Time Temp Pulse Resp B/P (MAP) Pulse Ox O2 Delivery O2 Flow Rate FiO2 05/10/20 09:57 98.8 05/10/20 09:00 Room Air 05/10/20 08:00 75 05/10/20 08:00 100.4 81 18 119/82 (94) 97 05/10/20 04:00 66 05/10/20 04:00 98.8 61 18 140/70 (93) 97 05/10/20 00:00 98.1 76 16 121/78 (92) 95 05/09/20 21:00 Room Air 05/09/20 20:00 83 05/09/20 20:00 98.1 71 18 122/81 (95) 96 05/09/20 16:00 98.6 83 19 119/74 (89) 94 05/09/20 16:00 76 05/09/20 12:00 77 05/09/20 12:00 98.6 80 19 123/85 (98) 94 Intake and Output 05/09/20 05/10/20 19:00 07:00 Intake Total 300 ml Balance 300 ml Intake Oral 300 ml # Voids 3 Laboratory Tests Test 05/10/20 08:00 Vancomycin Level Trough 6.9 ug/mL (5.0-12.0) Microbiology Date/Time Source Procedure Growth Status 05/07/20 14:02 Blood Blood Culture - Preliminary Strep Anginosus/Constellatus Resulted 05/07/20 13:12 Nasopharynx SARS-CoV-2 Antigen (Rapid)(ERIC) - Final Complete 05/07/20 13:12 Blood Blood Culture - Preliminary Strep Anginosus/Constellatus Resulted Objective HEAD AND NECK: No JVD. LUNGS: Clear. CARDIOVASCULAR: Regular S1 and S2 with no gallop or murmur. ABDOMEN: Soft. EXTREMITIES: No pitting edema. Jasen Kee MD May 10, 2020 10:37
[2020-05-10] MEDS ORDERED: Vancomycin 1 GM in NS 275 ML IVPB SCH (11:00)
--- NOTE | 2020-05-10 11:04 | Infectious Diseases Prog Note ---
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 Start on Rocephin CT scan of abdomen & pelvis Consider SONDRA We will follow up blood cultures Subjective ROS Limited/Unobtainable: No Constitutional: Reports: fever, other - Tu=141.4 Respiratory: Reports: no symptoms Gastrointestinal/Abdominal: Reports: no symptoms Genitourinary: Reports: no symptoms Allergies: Coded Allergies: No Known Allergies (Unverified , 05/07/20) Objective Last 24 Hour Vital Signs Date Time Temp Pulse Resp B/P (MAP) Pulse Ox O2 Delivery O2 Flow Rate FiO2 05/10/20 09:57 98.8 05/10/20 09:00 Room Air 05/10/20 08:00 75 05/10/20 08:00 100.4 81 18 119/82 (94) 97 05/10/20 04:00 66 05/10/20 04:00 98.8 61 18 140/70 (93) 97 05/10/20 00:00 98.1 76 16 121/78 (92) 95 05/09/20 21:00 Room Air 05/09/20 20:00 83 05/09/20 20:00 98.1 71 18 122/81 (95) 96 05/09/20 16:00 98.6 83 19 119/74 (89) 94 05/09/20 16:00 76 05/09/20 12:00 77 05/09/20 12:00 98.6 80 19 123/85 (98) 94 Height (Feet): 5 Height (Inches): 6.00 Weight (Pounds): 176 HEENT: mucous membranes moist Respiratory/Chest: lungs clear Cardiovascular: normal rate Abdomen: soft, non tender Extremities: no edema Neurologic/Psychiatric: alert, oriented x 3, responsive Microbiology Date/Time Source Procedure Growth Status 05/07/20 14:02 Blood Blood Culture - Preliminary Strep Anginosus/Constellatus Resulted 05/07/20 13:12 Nasopharynx SARS-CoV-2 Antigen (Rapid)(ERIC) - Final Complete 05/07/20 13:12 Blood Blood Culture - Preliminary Strep Anginosus/Constellatus Resulted Laboratory Tests Test 05/10/20 08:00 Vancomycin Level Trough 6.9 ug/mL (5.0-12.0) Current Medications Medications (Trade) Dose Ordered Sig/Zakia Route PRN Reason Start Time Stop Time Status Last Admin Dose Admin Acetaminophen (Tylenol) 500 mg Q6H PRN ORAL Mild Pain (Pain Scale 1-3) 05/07/20 18:45 06/06/20 18:44 Guaifenesin/ Dextromethorphan (Robitussin DM Syrup) 10 ml Q4H PRN ORAL For Cough 05/08/20 09:45 08/06/20 09:44 05/09/20 08:25 Vancomycin HCl (Vanco pharmacy to dose) 1 ea DAILY PRN MISC Per rx protocol 05/08/20 19:00 06/07/20 18:59 Vancomycin HCl 1 gm/Sodium Chloride 275 ml @ 183.708 mls/hr Q12H IVPB 05/10/20 11:00 05/15/20 10:59 Kaden Landers MD May 10, 2020 11:04
[2020-05-10 12:00] VITALS: BP 123/76
[2020-05-10] MEDS ORDERED: cefTRIAXone 2 GM in D5W 55 ML IVPB SCH (13:00)
[2020-05-10 16:00] VITALS: BP 135/84
--- NOTE | 2020-05-10 17:02 | Diagnostic Imaging Report ---
EXAM: CT CT Abdomen Pelvis WO Contrast INDICATION: Abdominal pain. COMPARISON: None TECHNIQUE: Axial images were obtained through the abdomen pelvis without intravenous contrast. Sagittal and coronal reformats are generated. All CT scans at this facility are performed using dose modulation techniques as appropriate to a performed exam including the following: automated exposure control with adjustment of the mA and/or kV according to patient size. RADIATION DOSE: CTDIvol: 6.7 mGy DLP: 356.8 mGy-cm Dose information generated by the CT scanner is available in PACS. FINDINGS: Minimal atelectasis is noted in the lung bases. The liver and spleen are homogeneous. Gallbladder is without sludge or stone and there is no wall thickening. The pancreas is unremarkable. Adrenals are normal in morphology. The kidneys are normal in size, shape and axis. Small bowel loops are nondistended. There is diverticulosis without sign of acute diverticulitis. The appendix is not visualized. There is no free fluid or free air. No pathologic adenopathy demonstrated. Urinary bladder appears unremarkable. IMPRESSION: NO SIGN OF ACUTE DISEASE IN THE ABDOMEN OR PELVIS. DIVERTICULOSIS.
[2020-05-10 20:35] VITALS: BP 121/75
--- NOTE | 2020-05-10 21:06 | General Progress Note ---
Subjective ROS Limited/Unobtainable: Yes Allergies: Coded Allergies: No Known Allergies (Unverified , 05/07/20) Objective Last 24 Hour Vital Signs Date Time Temp Pulse Resp B/P (MAP) Pulse Ox O2 Delivery O2 Flow Rate FiO2 05/10/20 20:37 88 05/10/20 20:35 100.9 81 17 121/75 (90) 94 05/10/20 16:00 86 05/10/20 16:00 98.1 79 17 135/84 (101) 97 05/10/20 12:00 80 05/10/20 12:00 98.4 70 18 123/76 (92) 94 05/10/20 09:57 98.8 05/10/20 09:00 Room Air 05/10/20 08:00 75 05/10/20 08:00 100.4 81 18 119/82 (94) 97 05/10/20 04:00 66 05/10/20 04:00 98.8 61 18 140/70 (93) 97 05/10/20 00:00 98.1 76 16 121/78 (92) 95 Intake and Output 05/09/20 05/10/20 19:00 07:00 Intake Total 300 ml Balance 300 ml Intake Oral 300 ml # Voids 3 Laboratory Tests 05/10/20 08:00: Vancomycin Level Trough 6.9 Height (Feet): 5 Height (Inches): 6.00 Weight (Pounds): 176 Assessment/Plan Problem List: (1) ACS (acute coronary syndrome) ICD Codes: I24.9 - Acute ischemic heart disease, unspecified SNOMED: [id number] Status: progressing Assessment/Plan: SONDRA? agreed to go to snf for iv abx sepsis positive blood cx needs iv antibiotic Christina Reza MD May 10, 2020 21:06
--- NOTE | 2020-05-10 23:10 | NUR ---
Assumed pt's care at 1900 from HAKAN Dickinson. Pt is aox4, no acute distress noted, respirations even and unlabored. PRN tylenol given for T of 100.9. Pt denies any pain. Cont ABT IV rocephin with no adv reactions noted. Pt is able to make needs known. Safety and comfort measures maintained, call light within reach, bed is locked and in low position.
[2020-05-11 00:48] VITALS: BP 113/72
[2020-05-11 04:00] VITALS: BP 114/67
--- NOTE | 2020-05-11 07:26 | NUR ---
NURSE NOTES: Remains afebrile. No acute distress noted.
--- NOTE | 2020-05-11 07:26 | NUR ---
NURSE HAND-OFF REPORT: Important Events on Shift: Temp of 100.9 X1, tylenol given went down to 98.1. Order for SONDRA Patient Status: Diet: Pending Orders: Pending Results/Labs: Pending MD notification: Latest Vital Signs: Temperature 98.1 , Pulse 56 , B/P 114 /67 , Respiratory Rate 17 , O2 SAT 95 , Room Air, O2 Flow Rate . Vital Sign Comment: EKG Rhythm: Sinus Bradycardia Rhythm change?: N MD Notified?: - MD Response: Latest Soto Fall Score: 20 Fall Risk: Low Risk Safety Measures: Call light Within Reach, Bed Alarm Zone 1, Side Rails Side Rails x2, Bed position Low and Locked. Fall Precautions: Patient Fall Education Report given to .
--- NOTE | 2020-05-11 07:35 | NUR ---
NURSE NOTES: Report received from Merly MCCLENDON. Patient seen on rounds, awake and up in bed. Not in distress, on room air. PIV on left AC patent and intact. Pt is ambulatory and continent. Bed low and locked, siderails up x2, call light placed within reach and instructed to call nurse for assistance. Will continue to monitor.
[2020-05-11 08:00] VITALS: BP 127/65
--- NOTE | 2020-05-11 08:45 | NUR ---
*-*DISCHARGE PLANNING*-* PATIENT HAS BEEN REFERRED TO: [facility] P: [phone] S/W MARTÍNEZ, WILL CALL BACK AFTER REVIEW.
[2020-05-11] MEDS ORDERED: CEFTRIAXONE1 G2 IV (09:52)
--- NOTE | 2020-05-11 09:59 | Infectious Diseases Prog Note ---
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 IE history of pericarditis, Recent history of COVID-19, Hypertension, Diastolic CHF RECOMMENDATION: Continue Rocephin CT scan of abdomen & pelvis: negative Repeat blood cultures Subjective ROS Limited/Unobtainable: No Constitutional: Reports: no symptoms Respiratory: Reports: dry cough Gastrointestinal/Abdominal: Reports: no symptoms Genitourinary: Reports: no symptoms Allergies: Coded Allergies: No Known Allergies (Unverified , 05/07/20) Objective Last 24 Hour Vital Signs Date Time Temp Pulse Resp B/P (MAP) Pulse Ox O2 Delivery O2 Flow Rate FiO2 05/11/20 09:00 Room Air 05/11/20 08:00 77 05/11/20 08:00 96.6 64 18 127/65 (85) 95 05/11/20 04:25 56 05/11/20 04:00 98.1 71 17 114/67 (83) 95 05/11/20 00:48 98.1 79 17 113/72 (86) 94 05/11/20 00:00 61 05/10/20 23:43 98.1 05/10/20 21:00 Room Air 05/10/20 20:37 88 05/10/20 20:35 100.9 81 17 121/75 (90) 94 05/10/20 16:00 86 05/10/20 16:00 98.1 79 17 135/84 (101) 97 05/10/20 12:00 80 05/10/20 12:00 98.4 70 18 123/76 (92) 94 Height (Feet): 5 Height (Inches): 6.00 Weight (Pounds): 176 HEENT: mucous membranes moist Respiratory/Chest: lungs clear Cardiovascular: normal rate Abdomen: soft, non tender Extremities: no edema Neurologic/Psychiatric: alert, oriented x 3, responsive Current Medications Medications (Trade) Dose Ordered Sig/Zakia Route PRN Reason Start Time Stop Time Status Last Admin Dose Admin Acetaminophen (Tylenol) 500 mg Q6H PRN ORAL Mild Pain (Pain Scale 1-3) 05/07/20 18:45 06/06/20 18:44 05/10/20 23:13 Barium Sulfate (Readi-Cat 2) 450 ml NOW PRN ORAL Radiology Procedure 05/10/20 11:00 05/12/20 10:59 Ceftriaxone Sodium 2 gm/ Dextrose 55 ml @ 110 mls/hr Q24H IVPB 05/11/20 13:00 05/18/20 12:59 05/11/20 09:02 Guaifenesin/ Dextromethorphan (Robitussin DM Syrup) 10 ml Q4H PRN ORAL For Cough 05/08/20 09:45 08/06/20 09:44 05/09/20 08:25 Kaden Landers MD May 11, 2020 09:59
--- NOTE | 2020-05-11 10:07 | Pulmonology Progress Note ---
Subjective ROS Limited/Unobtainable: No Interval Events: none major reported per nursing Constitutional: Reports: no symptoms HEENT: Repors: no symptoms Respiratory: Reports: dry cough Cardiovascular: Reports: no symptoms Gastrointestinal/Abdominal: Reports: no symptoms Allergies: Coded Allergies: No Known Allergies (Unverified , 05/07/20) Objective Last 24 Hour Vital Signs Date Time Temp Pulse Resp B/P (MAP) Pulse Ox O2 Delivery O2 Flow Rate FiO2 05/11/20 09:00 Room Air 05/11/20 08:00 77 05/11/20 08:00 96.6 64 18 127/65 (85) 95 05/11/20 04:25 56 05/11/20 04:00 98.1 71 17 114/67 (83) 95 05/11/20 00:48 98.1 79 17 113/72 (86) 94 05/11/20 00:00 61 05/10/20 23:43 98.1 05/10/20 21:00 Room Air 05/10/20 20:37 88 05/10/20 20:35 100.9 81 17 121/75 (90) 94 05/10/20 16:00 86 05/10/20 16:00 98.1 79 17 135/84 (101) 97 05/10/20 12:00 80 05/10/20 12:00 98.4 70 18 123/76 (92) 94 Intake and Output 05/10/20 05/11/20 19:00 07:00 Intake Total 240 ml Balance 240 ml Intake Oral 240 ml # Voids 5 3 General Appearance: no acute distress HEENT: atraumatic Respiratory: lungs clear Cardiovascular: normal rate, regular rhythm, other - murmur Abdomen: soft, non tender Current Medications Medications (Trade) Dose Ordered Sig/Zakia Route PRN Reason Start Time Stop Time Status Last Admin Dose Admin Acetaminophen (Tylenol) 500 mg Q6H PRN ORAL Mild Pain (Pain Scale 1-3) 05/07/20 18:45 06/06/20 18:44 05/10/20 23:13 Barium Sulfate (Readi-Cat 2) 450 ml NOW PRN ORAL Radiology Procedure 05/10/20 11:00 05/12/20 10:59 Ceftriaxone Sodium 2 gm/ Dextrose 55 ml @ 110 mls/hr Q24H IVPB 05/11/20 13:00 05/18/20 12:59 05/11/20 09:02 Guaifenesin/ Dextromethorphan (Robitussin DM Syrup) 10 ml Q4H PRN ORAL For Cough 05/08/20 09:45 08/06/20 09:44 05/09/20 08:25 Assessment/Plan Assessment/Plan 1. Persistent cough; improved - Robitussin prn cough 2. DVT prophylaxis -Ambulate 3. Fever on admission; now afebrile - f/u BCx -> Gram positive cocci -> on Vanco 4. Heart murmur - 2D Echo: mild A/P/T/M regurgitation, mild LV hypertrophy - Pt denies any history of heart surgery - SONDRA as an outpatient Noted plan for discharge to SNF to complete the course of Abx Medically stable for discharge from pulmonary standpoint The care for this patient was discussed with my supervising physician. Time spent for this case was approximately 31 minutes. Leonel Cole May 11, 2020 10:07
[2020-05-11 12:00] VITALS: BP 118/62
--- NOTE | 2020-05-11 12:41 | NUR ---
*-*DISCHARGE PLANNED*-* PATIENT HAS BEEN ACCEPTED AND WILL BE DISCHARGED TO: [facility] P: [phone] FOR NURSE TO NURSE REPORT ROOM# 211.[facility] SET FOR 1:45PM S/W PREET [id number]. PLACED A CALL TO PATIENT GROVER , NO ANSWER UNABLE TO LEAVE VOICE MESSAGE.
[2020-05-11] MEDS ORDERED: cefTRIAXone 2 GM in D5W 55 ML IVPB SCH (13:00)
--- NOTE | 2020-05-11 13:55 | NUR ---
NURSE NOTES: Patient discharged to [facility] via ambulance, AxOx4, not in distress, no fevers, no complaints of pain. Skin intact. Report given to Nancy MCCLENDON at [facility], pt is to continue IV ATB x 7 days. PIV on left AC patent and intact, keep IV in place per Dr. Reza. Discharge instructions and paperwork given to ambulance personnel. All belongings and home meds given to patient. Pt left at 1400 in stable condition.
--- NOTE | 2020-05-11 16:10 | Cardiac Electrophysiology PN ---
Assessment/Plan Assessment/Plan 1. Atypical chest pain. The patient with fever a recent COVID and history of pericarditis. Ruled out for [place] and Echocardiogram showed Nl EF with no pericardial effusion 2. Status post recent COVID with fever. On iv Vanco per ID DW RN DC back to SN[facility] Subjective Subjective No CP in SR. DC planning back to SNIF today Objective Last 24 Hour Vital Signs Date Time Temp Pulse Resp B/P (MAP) Pulse Ox O2 Delivery O2 Flow Rate FiO2 05/11/20 12:00 98.3 67 18 118/62 (80) 96 05/11/20 12:00 82 05/11/20 09:00 Room Air 05/11/20 08:00 77 05/11/20 08:00 96.6 64 18 127/65 (85) 95 05/11/20 04:25 56 05/11/20 04:00 98.1 71 17 114/67 (83) 95 05/11/20 00:48 98.1 79 17 113/72 (86) 94 05/11/20 00:00 61 05/10/20 23:43 98.1 05/10/20 21:00 Room Air 05/10/20 20:37 88 05/10/20 20:35 100.9 81 17 121/75 (90) 94 Intake and Output 05/10/20 05/11/20 19:00 07:00 Intake Total 240 ml Balance 240 ml Intake Oral 240 ml # Voids 5 3 Objective HEAD AND NECK: No JVD. LUNGS: Clear. CARDIOVASCULAR: Regular S1 and S2 with no gallop or murmur. ABDOMEN: Soft. EXTREMITIES: No pitting edema. Jasen Kee MD May 11, 2020 16:10
--- NOTE | 2020-05-14 10:21 | Discharge Summary ---
Discharge Summary Discharge Summary _ Date of admission: 05/07/2020 Date of discharge: 05/11/[address] Reza History of Present Illness and Brief Hospital Course Mr. Espino is a 69-year-old male with recent history of pericarditis who presented to the ER for evaluation of worsening chest pain over the few days. Patient was admitted approximately 2 weeks ago with a concerning EKG and elevated troponin and was transferred to [facility] for possible ACS. Patient underwent echocardiogram which revealed viral pericarditis likely secondary to COVID-19. Patient was discharged feeling normal but began to have worsening chest pain. Patient was discharged on colchicine which he was compliant to. At [facility] ER, patient tested negative for COVID-19 via rapid test. Chest x-ray showed no acute cardiopulmonary disease. Patient was given broad- spectrum antibiotics in the ER and was admitted to the hospital for further management. Given the atypical chest pain, patient was ruled out for mitral cardial infarction. Echocardiogram showed normal ejection fraction without pericardial effusion. Patient also had a heart murmur which was not fully explained by echocardiogram findings of mild heart valve regurgitation. Patient was instructed to undergo SONDRA as an outpatient for further evaluation. Patient also had fever on admission. Blood culture showed growth of Strep Anginosus/Constellatus. Patient was medically stable for discharge and was discharged to SNF to complete the course of IV antibiotics. Consultants: Cardiology Dr. Kee Infectious disease Dr. Landers Pulmonology Dr. Iglesias Discharge Condition Stable Discharge Activity As tolerated Discharge Diet Low-sodium Final diagnoses Atypical chest pain History of pericarditis Recent COVID-19 infection, recovered Strep angina gnosis sepsis Hypertension Diastolic CHF I have been assigned to dictate discharge summary for this account. Leonel Cole May 14, 2020 10:21
== END 2020-05-11 13:57 | DRG 872 ==
LOC: EMR 13:05 → 2E 16:30 → EDBEDREQ 17:21 → 2E 05-09 13:53
DX: A40.8 Other streptococcal sepsis (principal); I50.30 Unspecified diastolic (congestive) heart failure; R07.89 Other chest pain; I35.0 Nonrheumatic aortic (valve) stenosis; M10.9 Gout, unspecified; Z86.16 Personal history of COVID-19; I11.0 Hypertensive heart disease with heart failure; R01.1 Cardiac murmur, unspecified
CPT/HCPCS: 36415; 71045; 74176; 80053; 80202; 81001; 83605; 83880; 84439; 84443; 84484; 85025; 85651; 86140; 87040; 87181; 93005; 93306; 96365; 96375; 99285